=== PATIENT | male | born 1950 | race African-American/Black ===

== ENCOUNTER 2021-10-07 18:41 | Inpatient (IN) | payer OTHER ==
[~2021-10-07] VITALS: Ht 170.2 cm; Wt 71.2 kg
[2021-10-07] MEDS ORDERED: IOHEXOL 350 MG/ML 100 ML VIAL ONE (19:05)
[2021-10-07 19:23] LABS: BASOPHILS % (AUTO) 0.5 % (0.0-2.0); EOSINOPHILS % (AUTO) 2.1 % (1.0-6.0); HEMOGLOBIN 13.5 g/dL (13.5-17.5); LYMPHOCYTES # (AUTO) 2.6 K/uL (1.0-4.8); MEAN CORPUSCULAR HEMOGLOBIN 30.9 pg (26.0-34.0); MEAN CORPUSCULAR HGB CONC 33.7 G/dL (31.0-37.0); MEAN CORPUSCULAR VOLUME 92 fL (80-100); MONOCYTES # (AUTO) 0.8 K/uL (0.1-1.0); MONOCYTES % (AUTO) 8.1 % (2.0-9.0); NEUTROPHILS # (AUTO) 6.2 K/uL (1.8-7.7); NEUTROPHILS % (AUTO) 63.3 % (40.0-70.0); PLATELET COUNT (AUTO) 198 K/uL (150-450); RED BLOOD CELL COUNT(AUTO) 4.35 MIL/uL (4.50-5.90); RED CELL DISTRIBUTION WIDTH 13.2 % (11.5-14.5)
[2021-10-07 19:32] LABS: CALCIUM, TOTAL 9.1 mg/dL (8.8-10.5); CREATININE 2.62 mg/dL (0.60-1.30); POTASSIUM 4.3 mmol/L (3.5-5.1)
[2021-10-07] MEDS ORDERED: AMLO10TA55 PO (19:32)
[2021-10-07] MEDS ORDERED: FURO40TA5 PO (19:32)
[2021-10-07] MEDS ORDERED: CARV25TA32 PO (19:32)
[2021-10-07] MEDS ORDERED: SACU1TAB PO (19:32)
[2021-10-07] MEDS ORDERED: APIX5TAB PO (19:32)
[2021-10-07] MEDS ORDERED: DOCU-378 PO (19:32)
[2021-10-07] MEDS ORDERED: GABA-1181 PO (19:32)
[2021-10-07 19:38] LABS: BILIRUBIN,TOTAL 0.4 mg/dL (0.1-1.0)
[2021-10-07 19:39] LABS: PROTHROMBIN TIME 10.7 SEC (9.4-11.6)
[2021-10-07 19:45] LABS: B-TYPE NATRIURETIC PEPTIDE 577 pg/mL (0-100)
[2021-10-07] MEDS ORDERED: ONDANSETRON HCL 4 MG/2 ML VIAL IVP ONE (20:00)
[2021-10-07] MEDS ORDERED: ASPIRIN 325 MG TABLET PO ONE (20:00)
[2021-10-07] MEDS ORDERED: LABETALOL HCL 5 MG/ML 20 ML VIAL IVP ONE ×2 (20:00→21:15)
[2021-10-07 20:33] LABS: COVID AG,FIA SOURCE NASOPHARYNGEAL
[2021-10-07] MEDS ORDERED: 0.9% SODIUM CHLORIDE 10 ML SYRINGE IVP PRN (23:00)
[2021-10-07] MEDS ORDERED: ONDANSETRON HCL 4 MG/2 ML VIAL IVP PRN ×2 (23:00→23:45)
[2021-10-07] MEDS ORDERED: ACETAMINOPHEN 325 MG TABLET PO PRN ×2 (23:00→23:45)
[2021-10-07 23:36] LABS: APPEARANCE,URINE CLEAR (CLEAR); BILIRUBIN,URINE NEGATIVE (NEGATIVE); GLUCOSE, URINE (UA) 100 mg/dL (NEGATIVE); KETONES,URINE NEGATIVE (NEGATIVE); LEUKOCYTE ESTERASE ,URINE NEGATIVE (NEGATIVE); NITRATE,URINE NEGATIVE (NEGATIVE); OCCULT BLOOD,URINE TRACE (NEGATIVE); PROTEIN,URINE SEE CONFIRM (NEGATIVE)
[2021-10-07 23:38] LABS: AMPHET/METH SCREEN,URINE NEGATIVE (NEGATIVE); BARBITURATE SCREEN, URINE NEGATIVE (NEGATIVE); BENZODIAZEPINES SCREEN,URINE NEGATIVE (NEGATIVE); CANNABINOID SCREEN,URINE NEGATIVE (NEGATIVE); COCAINE SCREEN,URINE NEGATIVE (NEGATIVE); METHADONE SCREEN, URINE POSITIVE (NEGATIVE); OPIATE SCREEN,URINE NEGATIVE (NEGATIVE)
[2021-10-07 23:39] LABS: PHENCYCLIDINE SCREEN,URINE NEGATIVE (NEGATIVE)
[2021-10-07 23:45] LABS: SULFOSALICYLIC ACID,URINE 2+ (Negative)
[2021-10-07] MEDS ORDERED: ZOLPIDEM TARTRATE 5 MG TABLET PO PRN (23:45)
[2021-10-07] MEDS ORDERED: MAGNESIUM HYDROXIDE SUSPENSION 30 ML UDCUP PO PRN (23:45)
[2021-10-07] MEDS ORDERED: BISACODYL 10 MG RECTAL RECTAL SUPPOSITORY PR PRN (23:45)
[2021-10-07] MEDS ORDERED: HYDROCODONE/ACETAMINOPHEN 5-325 MG TABLET PO PRN (23:45)
[2021-10-07] MEDS ORDERED: MORPHINE SULFATE 2 MG/ML SYRINGE IVP PRN (23:45)
[2021-10-07 23:46] LABS: BACTERIA,URINE None Seen /HPF (None Seen); RBC,URINE 0-2 /HPF (0-2); WBC,URINE None Seen /HPF (0-5)
[2021-10-08] VITALS (7 sets, daily range): BP systolic 134–187; BP diastolic 73–86
[2021-10-08] MEDS: HydrALAZINE HCL 20 MG/ML VIAL IVP PRN (00:35)
[2021-10-08 06:36] LABS: GLUCOMETER DEV NAME(LOC) 5N.1C; GLUCOSE,POINT OF CARE 94 MG/DL (70-110)
[2021-10-08] MEDS ORDERED: GABAPENTIN 300 MG CAPSULE PO SCH (09:00)
[2021-10-08] MEDS: PANTOPRAZOLE SODIUM 40 MG DR TABLET PO SCH (09:48)
[2021-10-08] MEDS: APIXABAN 5 MG TABLET PO SCH ×2 (09:49→21:03)
[2021-10-08] MEDS: CARVEDILOL 25 MG TABLET PO SCH ×3 (09:49→21:03)
[2021-10-08] MEDS: DOCUSATE SODIUM 100 MG CAPSULE PO SCH ×2 (09:49→21:03)
[2021-10-08] MEDS: AmLODIPine BESYLATE 10 MG TABLET PO SCH (09:49)
[2021-10-08] MEDS: FUROSEMIDE 40 MG TABLET PO SCH (09:49)
[2021-10-08 10:35] LABS: BASOPHILS % (AUTO) 0.6 % (0.0-2.0); EOSINOPHILS % (AUTO) 2.2 % (1.0-6.0); HEMATOCRIT 39.2 % (41-53); HEMOGLOBIN 13.1 g/dL (13.5-17.5); LYMPHOCYTES # (AUTO) 2.6 K/uL (1.0-4.8); LYMPHOCYTES % (AUTO) 33.5 % (22.0-44.0); MEAN CORPUSCULAR HEMOGLOBIN 30.8 pg (26.0-34.0); MEAN CORPUSCULAR HGB CONC 33.5 G/dL (31.0-37.0); MEAN CORPUSCULAR VOLUME 92 fL (80-100); MONOCYTES # (AUTO) 0.6 K/uL (0.1-1.0); MONOCYTES % (AUTO) 7.6 % (2.0-9.0); NEUTROPHILS # (AUTO) 4.3 K/uL (1.8-7.7); NEUTROPHILS % (AUTO) 56.1 % (40.0-70.0); PLATELET COUNT (AUTO) 168 K/uL (150-450); RED BLOOD CELL COUNT(AUTO) 4.27 MIL/uL (4.50-5.90); RED CELL DISTRIBUTION WIDTH 13.2 % (11.5-14.5)
[2021-10-08 10:48] LABS: ALBUMIN 2.6 g/dL (3.4-5.0); BILIRUBIN,TOTAL 0.5 mg/dL (0.1-1.0); CREATININE 2.64 mg/dL (0.60-1.30); POTASSIUM 3.9 mmol/L (3.5-5.1)
[2021-10-08] MEDS: SACUBITRIL/VALSARTAN 24-26 MG TABLET PO SCH ×2 (11:20→21:04)
[2021-10-08 13:21] LABS: GLUCOMETER DEV NAME(LOC) 5N.1C; GLUCOSE,POINT OF CARE 146 MG/DL (70-110)
[2021-10-08 20:01] LABS: GLUCOMETER DEV NAME(LOC) 5N.1C; GLUCOSE,POINT OF CARE 117 MG/DL (70-110)
[2021-10-08] MEDS: GABAPENTIN 100 MG CAPSULE PO SCH (21:03)
[2021-10-09 00:28] VITALS: BP 176/69
[2021-10-09 04:30] VITALS: BP 138/69
[2021-10-09 05:37] LABS: GLUCOMETER DEV NAME(LOC) 5N.1C; GLUCOSE,POINT OF CARE 124 MG/DL (70-110)
[2021-10-09 06:36] LABS: BASOPHILS % (AUTO) 0.5 % (0.0-2.0); EOSINOPHILS % (AUTO) 3.5 % (1.0-6.0); HEMATOCRIT 35.9 % (41-53); HEMOGLOBIN 12.3 g/dL (13.5-17.5); LYMPHOCYTES # (AUTO) 2.4 K/uL (1.0-4.8); LYMPHOCYTES % (AUTO) 36.8 % (22.0-44.0); MEAN CORPUSCULAR HEMOGLOBIN 31.4 pg (26.0-34.0); MEAN CORPUSCULAR HGB CONC 34.3 G/dL (31.0-37.0); MEAN CORPUSCULAR VOLUME 92 fL (80-100); MONOCYTES # (AUTO) 0.6 K/uL (0.1-1.0); MONOCYTES % (AUTO) 9.8 % (2.0-9.0); NEUTROPHILS # (AUTO) 3.2 K/uL (1.8-7.7); NEUTROPHILS % (AUTO) 49.4 % (40.0-70.0); PLATELET COUNT (AUTO) 168 K/uL (150-450); RED BLOOD CELL COUNT(AUTO) 3.92 MIL/uL (4.50-5.90); RED CELL DISTRIBUTION WIDTH 13.2 % (11.5-14.5)
[2021-10-09 06:42] LABS: CALCIUM, TOTAL 8.8 mg/dL (8.8-10.5); CREATININE 3.38 mg/dL (0.60-1.30); POTASSIUM 3.7 mmol/L (3.5-5.1)
[2021-10-09 06:56] LABS: GLUCOMETER DEV NAME(LOC) 5N.1C; GLUCOSE,POINT OF CARE 87 MG/DL (70-110)
[2021-10-09 08:36] VITALS: BP 143/77
[2021-10-09] MEDS: SACUBITRIL/VALSARTAN 24-26 MG TABLET PO SCH ×2 (09:17→20:51)
[2021-10-09] MEDS: FUROSEMIDE 40 MG TABLET PO SCH (09:17)
[2021-10-09] MEDS: PANTOPRAZOLE SODIUM 40 MG DR TABLET PO SCH (09:18)
[2021-10-09] MEDS: DOCUSATE SODIUM 100 MG CAPSULE PO SCH ×2 (09:18→20:52)
[2021-10-09] MEDS: GABAPENTIN 100 MG CAPSULE PO SCH ×2 (09:18→20:52)
[2021-10-09] MEDS: CARVEDILOL 25 MG TABLET PO SCH ×2 (09:18→20:51)
[2021-10-09] MEDS: AmLODIPine BESYLATE 10 MG TABLET PO SCH (09:18)
[2021-10-09] MEDS: APIXABAN 5 MG TABLET PO SCH ×2 (09:19→20:51)
[2021-10-09 12:43] VITALS: BP 168/84
[2021-10-09 15:47] VITALS: BP 152/69
[2021-10-09] MEDS: DEXTROSE 5%-WATER 1,000 ML IV SCH (16:10)
[2021-10-09 20:00] VITALS: BP 161/85
[2021-10-09 20:56] LABS: GLUCOMETER DEV NAME(LOC) 5S.1B; GLUCOSE,POINT OF CARE 121 MG/DL (70-110)
[2021-10-09 20:56] LABS: GLUCOMETER DEV NAME(LOC) 5S.1B; GLUCOSE,POINT OF CARE 73 MG/DL (70-110)
[2021-10-10] VITALS: BP 127/47
[2021-10-10 02:11] LABS: GLUCOMETER DEV NAME(LOC) 5N.1C; GLUCOSE,POINT OF CARE 128 MG/DL (70-110)
[2021-10-10 04:00] VITALS: BP 126/43
[2021-10-10] MEDS: DEXTROSE 5%-WATER 1,000 ML IV SCH ×2 (05:21→20:50)
[2021-10-10 06:41] LABS: GLUCOMETER DEV NAME(LOC) 5N.1C; GLUCOSE,POINT OF CARE 155 MG/DL (70-110)
[2021-10-10 07:52] LABS: BASOPHILS % (AUTO) 0.3 % (0.0-2.0); EOSINOPHILS % (AUTO) 2.6 % (1.0-6.0); HEMATOCRIT 41.7 % (41-53); HEMOGLOBIN 14.1 g/dL (13.5-17.5); LYMPHOCYTES # (AUTO) 2.3 K/uL (1.0-4.8); LYMPHOCYTES % (AUTO) 32.1 % (22.0-44.0); MEAN CORPUSCULAR HEMOGLOBIN 31.1 pg (26.0-34.0); MEAN CORPUSCULAR HGB CONC 33.9 G/dL (31.0-37.0); MEAN CORPUSCULAR VOLUME 92 fL (80-100); MONOCYTES # (AUTO) 0.6 K/uL (0.1-1.0); MONOCYTES % (AUTO) 8.3 % (2.0-9.0); NEUTROPHILS # (AUTO) 4.1 K/uL (1.8-7.7); NEUTROPHILS % (AUTO) 56.7 % (40.0-70.0); PLATELET COUNT (AUTO) 178 K/uL (150-450); RED BLOOD CELL COUNT(AUTO) 4.54 MIL/uL (4.50-5.90); RED CELL DISTRIBUTION WIDTH 13.1 % (11.5-14.5)
[2021-10-10 08:00] VITALS: BP 171/84
[2021-10-10 08:03] LABS: CALCIUM, TOTAL 8.8 mg/dL (8.8-10.5); CREATININE 3.66 mg/dL (0.60-1.30); POTASSIUM 3.5 mmol/L (3.5-5.1)
[2021-10-10] MEDS: AmLODIPine BESYLATE 10 MG TABLET PO SCH (09:50)
[2021-10-10] MEDS: FUROSEMIDE 40 MG TABLET PO SCH (09:50)
[2021-10-10] MEDS: PANTOPRAZOLE SODIUM 40 MG DR TABLET PO SCH (09:50)
[2021-10-10] MEDS: GABAPENTIN 100 MG CAPSULE PO SCH ×2 (09:50→20:51)
[2021-10-10] MEDS: SACUBITRIL/VALSARTAN 24-26 MG TABLET PO SCH (09:50)
[2021-10-10] MEDS: CARVEDILOL 25 MG TABLET PO SCH ×2 (09:50→20:51)
[2021-10-10] MEDS: APIXABAN 5 MG TABLET PO SCH ×2 (09:51→20:51)
[2021-10-10] MEDS: DOCUSATE SODIUM 100 MG CAPSULE PO SCH ×2 (09:51→20:51)
[2021-10-10 12:58] VITALS: BP 138/69
[2021-10-10 16:00] VITALS: BP 148/80
[2021-10-10 17:22] LABS: INR 1.1 (0.9-1.1); PROTHROMBIN TIME 11.5 SEC (9.4-11.6)
[2021-10-10 18:21] LABS: GLUCOMETER DEV NAME(LOC) 5S.1B; GLUCOSE,POINT OF CARE 133 MG/DL (70-110)
[2021-10-10 19:43] VITALS: BP 123/73
[2021-10-10 20:06] LABS: GLUCOMETER DEV NAME(LOC) 5N.1C; GLUCOSE,POINT OF CARE 173 MG/DL (70-110)
[2021-10-10 21:16] LABS: GLUCOMETER DEV NAME(LOC) 5N.1C; GLUCOSE,POINT OF CARE 148 MG/DL (70-110)
[2021-10-11 02:06] VITALS: BP 121/69
[2021-10-11 04:31] VITALS: BP 127/86
[2021-10-11 08:35] VITALS: BP 161/85
[2021-10-11 08:41] LABS: CALCIUM, TOTAL 9.2 mg/dL (8.8-10.5); CREATININE 3.82 mg/dL (0.60-1.30); POTASSIUM 3.5 mmol/L (3.5-5.1)
[2021-10-11] MEDS: GABAPENTIN 100 MG CAPSULE PO SCH ×2 (09:00→21:03)
[2021-10-11] MEDS: AmLODIPine BESYLATE 10 MG TABLET PO SCH (09:00)
[2021-10-11] MEDS: APIXABAN 5 MG TABLET PO SCH ×2 (09:00→21:00)
[2021-10-11] MEDS: DOCUSATE SODIUM 100 MG CAPSULE PO SCH ×2 (09:00→21:03)
[2021-10-11] MEDS: CARVEDILOL 25 MG TABLET PO SCH ×2 (09:00→21:03)
[2021-10-11] MEDS: PANTOPRAZOLE SODIUM 40 MG DR TABLET PO SCH (09:00)
[2021-10-11] MEDS: DEXTROSE 5%-WATER 1,000 ML IV SCH (10:47)
[2021-10-11 11:31] LABS: GLUCOMETER DEV NAME(LOC) 5N.1C; GLUCOSE,POINT OF CARE 142 MG/DL (70-110)
[2021-10-11 12:23] VITALS: BP 132/75
[2021-10-11 16:36] LABS: GLUCOMETER DEV NAME(LOC) 5N.1C; GLUCOSE,POINT OF CARE 140 MG/DL (70-110)
[2021-10-11 18:20] VITALS: BP 136/87
[2021-10-11 20:15] LABS: GLUCOMETER DEV NAME(LOC) 5N.1C; GLUCOSE,POINT OF CARE 124 MG/DL (70-110)
[2021-10-11 20:20] VITALS: BP 158/97
[2021-10-11 22:37] LABS: GLUCOMETER DEV NAME(LOC) 5S.2B; GLUCOSE,POINT OF CARE 150 MG/DL (70-110)
[2021-10-12 00:23] VITALS: BP 147/79
[2021-10-12] MEDS: DEXTROSE 5%-WATER 1,000 ML IV SCH (00:32)
[2021-10-12 01:45] LABS: APPEARANCE,URINE CLEAR (CLEAR); BILIRUBIN,URINE NEGATIVE (NEGATIVE); GLUCOSE, URINE (UA) NEGATIVE (NEGATIVE); KETONES,URINE NEGATIVE (NEGATIVE); LEUKOCYTE ESTERASE ,URINE NEGATIVE (NEGATIVE); NITRATE,URINE NEGATIVE (NEGATIVE); OCCULT BLOOD,URINE TRACE (NEGATIVE); PH,URINE 6.5 (5.0-8.0); PROTEIN,URINE SEE CONFIRM (NEGATIVE)
[2021-10-12 01:48] LABS: CREATININE,URINE RANDOM 32.8 mg/dL (30.0-125.0); PROTEIN,URINE RANDOM 177 mg/dL (0-11.9); SODIUM,URINE RANDOM 17 mmol/l (20-110); UREA NITROGEN,URINE RANDOM 152 mg/dL (350-1000)
[2021-10-12 02:01] LABS: BACTERIA,URINE None Seen /HPF (None Seen); RBC,URINE 0-2 /HPF (0-2); SULFOSALICYLIC ACID,URINE 1+ (Negative); WBC,URINE 0-2 /HPF (0-5)
[2021-10-12 04:51] VITALS: BP 129/66
[2021-10-12 07:50] LABS: CALCIUM, TOTAL 8.5 mg/dL (8.8-10.5); MAGNESIUM 1.7 mg/dL (1.80-2.40); PHOSPHORUS 5.3 mg/dL (2.5-4.9); POTASSIUM 3.5 mmol/L (3.5-5.1)
[2021-10-12 08:01] LABS: GLUCOMETER DEV NAME(LOC) 5N.1C; GLUCOSE,POINT OF CARE 142 MG/DL (70-110)
[2021-10-12] MEDS: APIXABAN 5 MG TABLET PO SCH (08:18)
[2021-10-12 08:29] VITALS: BP 138/73
[2021-10-12] MEDS: PANTOPRAZOLE SODIUM 40 MG DR TABLET PO SCH (09:00)
[2021-10-12] MEDS: AmLODIPine BESYLATE 10 MG TABLET PO SCH (09:17)
[2021-10-12] MEDS: CARVEDILOL 25 MG TABLET PO SCH ×2 (09:17→20:36)
[2021-10-12] MEDS: DOCUSATE SODIUM 100 MG CAPSULE PO SCH ×2 (09:17→20:36)
[2021-10-12] MEDS: GABAPENTIN 100 MG CAPSULE PO SCH ×2 (09:17→20:35)
[2021-10-12 12:00] VITALS: BP 139/67
[2021-10-12] MEDS: SODIUM CHLORIDE 0.9% 1,000 ML IV SCH (13:07)
[2021-10-12] MEDS ORDERED: HEPARIN SODIUM,PORCINE 5,000 UNITS/ML VIAL IVP PRN ×2 (15:15)
[2021-10-12 15:43] LABS: BASOPHILS % (AUTO) 0.5 % (0.0-2.0); EOSINOPHILS % (AUTO) 2.1 % (1.0-6.0); HEMATOCRIT 37.1 % (41-53); HEMOGLOBIN 12.7 g/dL (13.5-17.5); LYMPHOCYTES # (AUTO) 1.6 K/uL (1.0-4.8); LYMPHOCYTES % (AUTO) 20.6 % (22.0-44.0); MEAN CORPUSCULAR HEMOGLOBIN 30.8 pg (26.0-34.0); MEAN CORPUSCULAR HGB CONC 34.3 G/dL (31.0-37.0); MEAN CORPUSCULAR VOLUME 90 fL (80-100); MONOCYTES # (AUTO) 0.9 K/uL (0.1-1.0); NEUTROPHILS # (AUTO) 5.2 K/uL (1.8-7.7); NEUTROPHILS % (AUTO) 65.8 % (40.0-70.0); PLATELET COUNT (AUTO) 173 K/uL (150-450); RED BLOOD CELL COUNT(AUTO) 4.14 MIL/uL (4.50-5.90); RED CELL DISTRIBUTION WIDTH 12.8 % (11.5-14.5)
[2021-10-12 15:56] LABS: INR 1.1 (0.9-1.1); PROTHROMBIN TIME 11.2 SEC (9.4-11.6)
[2021-10-12 21:39] VITALS: BP 144/77
[2021-10-12 23:35] LABS: GLUCOMETER DEV NAME(LOC) 5N.1C; GLUCOSE,POINT OF CARE 172 MG/DL (70-110)
[2021-10-12 23:36] LABS: GLUCOMETER DEV NAME(LOC) 5N.1C; GLUCOSE,POINT OF CARE 163 MG/DL (70-110)
[2021-10-12 23:36] LABS: GLUCOMETER DEV NAME(LOC) 5S.2B; GLUCOSE,POINT OF CARE 171 MG/DL (70-110)
[2021-10-13] MEDS: HEPARIN SODIUM 25000 UNITS/D5W 250 ML IV PRN ×2 (00:05→23:41)
[2021-10-13 01:11] VITALS: BP 141/76
[2021-10-13] MEDS: SODIUM CHLORIDE 0.9% 1,000 ML IV SCH ×2 (02:05→18:08)
[2021-10-13 04:26] VITALS: BP 155/77
[2021-10-13 06:50] LABS: CALCIUM, TOTAL 8.5 mg/dL (8.8-10.5); CREATININE 3.71 mg/dL (0.60-1.30); MAGNESIUM 1.8 mg/dL (1.80-2.40); PHOSPHORUS 4.2 mg/dL (2.5-4.9); POTASSIUM 3.4 mmol/L (3.5-5.1)
[2021-10-13 06:52] LABS: BASOPHILS % (AUTO) 0.3 % (0.0-2.0); EOSINOPHILS % (AUTO) 1.2 % (1.0-6.0); HEMATOCRIT 36.6 % (41-53); HEMOGLOBIN 12.7 g/dL (13.5-17.5); LYMPHOCYTES # (AUTO) 1.4 K/uL (1.0-4.8); LYMPHOCYTES % (AUTO) 14.2 % (22.0-44.0); MEAN CORPUSCULAR HGB CONC 34.7 G/dL (31.0-37.0); MEAN CORPUSCULAR VOLUME 89 fL (80-100); MONOCYTES # (AUTO) 0.9 K/uL (0.1-1.0); MONOCYTES % (AUTO) 9.2 % (2.0-9.0); NEUTROPHILS # (AUTO) 7.6 K/uL (1.8-7.7); NEUTROPHILS % (AUTO) 75.1 % (40.0-70.0); PLATELET COUNT (AUTO) 149 K/uL (150-450); RED CELL DISTRIBUTION WIDTH 12.8 % (11.5-14.5)
[2021-10-13] MEDS ORDERED: CeFAZolin 1 GM/DEXTROSE 50 ML IV ONE (07:00)
[2021-10-13 08:20] VITALS: BP 161/115
[2021-10-13] MEDS: PANTOPRAZOLE SODIUM 40 MG DR TABLET PO SCH (09:02)
[2021-10-13] MEDS: CARVEDILOL 25 MG TABLET PO SCH ×2 (09:02→21:10)
[2021-10-13] MEDS: AmLODIPine BESYLATE 10 MG TABLET PO SCH (09:02)
[2021-10-13] MEDS: DOCUSATE SODIUM 100 MG CAPSULE PO SCH (09:03)
[2021-10-13] MEDS: GABAPENTIN 100 MG CAPSULE PO SCH ×2 (09:03→21:09)
[2021-10-13] MEDS ORDERED: SODIUM CHLORIDE 0.9% 0 ML ONE (09:10)
[2021-10-13] MEDS: TAMSULOSIN HCL 0.4 MG CAPSULE PO SCH (12:17)
[2021-10-13 12:38] VITALS: BP 89/74
[2021-10-13 12:56] LABS: GLUCOMETER DEV NAME(LOC) 5N.1C; GLUCOSE,POINT OF CARE 182 MG/DL (70-110)
[2021-10-13 12:56] LABS: GLUCOMETER DEV NAME(LOC) 5N.1C; GLUCOSE,POINT OF CARE 224 MG/DL (70-110)
[2021-10-13 16:00] VITALS: BP 158/69
[2021-10-13 19:51] LABS: GLUCOMETER DEV NAME(LOC) 5S.2B; GLUCOSE,POINT OF CARE 219 MG/DL (70-110)
[2021-10-13 20:00] VITALS: BP 166/88
[2021-10-13] MEDS ORDERED: INSULIN LISPRO 100 UNITS/ML SQ PRN (21:30)
[2021-10-13] MEDS ORDERED: DEXTROSE 50%-WATER 25 GM/50 ML SYRINGE IVP PRN (21:30)
[2021-10-13] MEDS: HydrALAZINE HCL 20 MG/ML VIAL IVP PRN (22:06)
[2021-10-14] VITALS: BP 145/68
[2021-10-14 04:00] VITALS: BP 145/68
[2021-10-14 05:16] LABS: GLUCOMETER DEV NAME(LOC) 5N.1C; GLUCOSE,POINT OF CARE 225 MG/DL (70-110)
[2021-10-14] MEDS ORDERED: DEXTROSE 50%-WATER 25 GM/50 ML SYRINGE IVP PRN (06:45)
[2021-10-14 07:26] LABS: CALCIUM, TOTAL 8.5 mg/dL (8.8-10.5); CREATININE 3.37 mg/dL (0.60-1.30); MAGNESIUM 1.9 mg/dL (1.80-2.40); PHOSPHORUS 3.4 mg/dL (2.5-4.9); POTASSIUM 3.4 mmol/L (3.5-5.1)
[2021-10-14] MEDS: SODIUM CHLORIDE 0.9% 1,000 ML IV SCH (08:46)
[2021-10-14] MEDS: DOCUSATE SODIUM 100 MG/10 ML LIQUID UDCUP NG SCH ×2 (08:55→21:04)
[2021-10-14] MEDS: TAMSULOSIN HCL 0.4 MG CAPSULE PO SCH (08:56)
[2021-10-14] MEDS: AmLODIPine BESYLATE 10 MG TABLET PO SCH (08:56)
[2021-10-14] MEDS: PANTOPRAZOLE SODIUM 40 MG DR TABLET PO SCH (08:57)
[2021-10-14] MEDS: CARVEDILOL 25 MG TABLET PO SCH ×2 (08:57→21:04)
[2021-10-14] MEDS: GABAPENTIN 100 MG CAPSULE PO SCH ×2 (08:58→21:04)
[2021-10-14 09:35] VITALS: BP 159/83
[2021-10-14] MEDS: INSULIN LISPRO 100 UNITS/ML SQ PRN ×2 (12:44→17:59)
[2021-10-14 17:13] VITALS: BP 155/89
[2021-10-14 17:16] LABS: GLUCOMETER DEV NAME(LOC) 5N.1C; GLUCOSE,POINT OF CARE 134 MG/DL (70-110)
[2021-10-14 19:39] VITALS: BP 121/63
[2021-10-14 20:36] LABS: GLUCOMETER DEV NAME(LOC) 5S.2B; GLUCOSE,POINT OF CARE 209 MG/DL (70-110)
[2021-10-14 20:36] LABS: GLUCOMETER DEV NAME(LOC) 5S.2B; GLUCOSE,POINT OF CARE 226 MG/DL (70-110)
[2021-10-15] MEDS: SODIUM CHLORIDE 0.9% 1,000 ML IV SCH (00:05)
[2021-10-15 00:54] VITALS: BP 131/65
[2021-10-15] MEDS: HEPARIN SODIUM 25000 UNITS/D5W 250 ML IV PRN (03:08)
[2021-10-15 05:14] VITALS: BP 127/64
[2021-10-15] MEDS: INSULIN LISPRO 100 UNITS/ML SQ PRN (05:32)
[2021-10-15 07:07] LABS: IGM (IMMUNOFIXATION) 266 mg/dL (20-172)
[2021-10-15 07:28] LABS: CALCIUM, TOTAL 8.5 mg/dL (8.8-10.5); CREATININE 3.19 mg/dL (0.60-1.30); PHOSPHORUS 2.9 mg/dL (2.5-4.9); POTASSIUM 3.7 mmol/L (3.5-5.1)
[2021-10-15 07:30] VITALS: BP 140/92
[2021-10-15] MEDS: TAMSULOSIN HCL 0.4 MG CAPSULE PO SCH (09:00)
[2021-10-15] MEDS: CARVEDILOL 25 MG TABLET PO SCH ×2 (09:00→21:00)
[2021-10-15] MEDS: AmLODIPine BESYLATE 10 MG TABLET PO SCH (09:00)
[2021-10-15] MEDS: PANTOPRAZOLE SODIUM 40 MG DR TABLET PO SCH (09:00)
[2021-10-15] MEDS: GABAPENTIN 100 MG CAPSULE PO SCH ×2 (09:00→21:00)
[2021-10-15] MEDS: DOCUSATE SODIUM 100 MG/10 ML LIQUID UDCUP NG SCH ×2 (09:00→21:00)
[2021-10-15] MEDS: SODIUM CHLORIDE 0.45% 1,000 ML IV SCH (09:07)
[2021-10-15 11:39] VITALS: BP 134/63
[2021-10-15 11:46] LABS: GLUCOMETER DEV NAME(LOC) 5S.2B; GLUCOSE,POINT OF CARE 201 MG/DL (70-110)
[2021-10-15 15:36] VITALS: BP 155/77
[2021-10-15 17:21] LABS: GLUCOMETER DEV NAME(LOC) 5S.2B; GLUCOSE,POINT OF CARE 169 MG/DL (70-110)
[2021-10-15 17:56] LABS: GLUCOMETER DEV NAME(LOC) 5S.1B; GLUCOSE,POINT OF CARE 212 MG/DL (70-110)
[2021-10-15 17:56] LABS: GLUCOMETER DEV NAME(LOC) 5S.1B; GLUCOSE,POINT OF CARE 186 MG/DL (70-110)
[2021-10-15 20:45] VITALS: BP 144/85
[2021-10-16] VITALS (7 sets, daily range): BP systolic 135–164; BP diastolic 67–91
[2021-10-16] MEDS: SODIUM CHLORIDE 0.45% 1,000 ML IV SCH ×2 (04:53→23:36)
[2021-10-16 06:06] LABS: ALBUMIN URINE (ELP) 45.3 %
[2021-10-16 06:20] LABS: CALCIUM, TOTAL 8.5 mg/dL (8.8-10.5); CREATININE 2.73 mg/dL (0.60-1.30); PHOSPHORUS 3.2 mg/dL (2.5-4.9); POTASSIUM 3.2 mmol/L (3.5-5.1)
[2021-10-16 06:42] LABS: BASOPHILS % (AUTO) 0.3 % (0.0-2.0); EOSINOPHILS % (AUTO) 2.2 % (1.0-6.0); HEMATOCRIT 31.4 % (41-53); HEMOGLOBIN 10.6 g/dL (13.5-17.5); LYMPHOCYTES # (AUTO) 2.2 K/uL (1.0-4.8); LYMPHOCYTES % (AUTO) 23.8 % (22.0-44.0); MEAN CORPUSCULAR HEMOGLOBIN 30.6 pg (26.0-34.0); MEAN CORPUSCULAR HGB CONC 33.7 G/dL (31.0-37.0); MEAN CORPUSCULAR VOLUME 91 fL (80-100); MONOCYTES % (AUTO) 10.4 % (2.0-9.0); NEUTROPHILS # (AUTO) 5.8 K/uL (1.8-7.7); NEUTROPHILS % (AUTO) 63.3 % (40.0-70.0); PLATELET COUNT (AUTO) 195 K/uL (150-450); RED BLOOD CELL COUNT(AUTO) 3.46 MIL/uL (4.50-5.90); RED CELL DISTRIBUTION WIDTH 12.8 % (11.5-14.5)
[2021-10-16] MEDS: HEPARIN SODIUM 25000 UNITS/D5W 250 ML IV PRN (08:10)
[2021-10-16] MEDS: HydrALAZINE HCL 20 MG/ML VIAL IVP PRN (08:17)
[2021-10-16] MEDS: POTASSIUM CHL 10 MEQ/WATER 50 ML IV SCH ×2 (08:17→09:30)
[2021-10-16 08:21] LABS: GLUCOMETER DEV NAME(LOC) 5S.2B; GLUCOSE,POINT OF CARE 162 MG/DL (70-110)
[2021-10-16 08:21] LABS: GLUCOMETER DEV NAME(LOC) 5S.2B; GLUCOSE,POINT OF CARE 159 MG/DL (70-110)
[2021-10-16] MEDS: AmLODIPine BESYLATE 10 MG TABLET PO SCH (09:00)
[2021-10-16] MEDS: CARVEDILOL 25 MG TABLET PO SCH ×2 (09:00→21:34)
[2021-10-16] MEDS: TAMSULOSIN HCL 0.4 MG CAPSULE PO SCH (09:00)
[2021-10-16] MEDS: PANTOPRAZOLE SODIUM 40 MG DR TABLET PO SCH (09:00)
[2021-10-16] MEDS: GABAPENTIN 100 MG CAPSULE PO SCH ×2 (09:00→21:34)
[2021-10-16] MEDS: DOCUSATE SODIUM 100 MG/10 ML LIQUID UDCUP NG SCH ×2 (09:00→21:34)
[2021-10-16] MEDS ORDERED: CeFAZolin 1 GM/DEXTROSE 50 ML IV ONE (11:00)
[2021-10-16 12:16] LABS: GLUCOMETER DEV NAME(LOC) 5S.1B; GLUCOSE,POINT OF CARE 182 MG/DL (70-110)
[2021-10-16 17:01] LABS: GLUCOMETER DEV NAME(LOC) 5S.2B; GLUCOSE,POINT OF CARE 164 MG/DL (70-110)
[2021-10-17] MEDS: INSULIN LISPRO 100 UNITS/ML SQ PRN ×4 (01:21→20:37)
[2021-10-17 01:31] LABS: GLUCOMETER DEV NAME(LOC) 5S.1B; GLUCOSE,POINT OF CARE 144 MG/DL (70-110)
[2021-10-17 04:06] VITALS: BP 127/64
[2021-10-17] MEDS ORDERED: PROPOFOL 1% 20 ML VIAL IVP ONE (05:39)
[2021-10-17 05:55] LABS: CALCIUM, TOTAL 8.5 mg/dL (8.8-10.5); CREATININE 2.61 mg/dL (0.60-1.30); MAGNESIUM 1.9 mg/dL (1.80-2.40); PHOSPHORUS 3.4 mg/dL (2.5-4.9); POTASSIUM 3.3 mmol/L (3.5-5.1)
[2021-10-17 07:40] VITALS: BP 131/79
[2021-10-17 08:16] LABS: GLUCOMETER DEV NAME(LOC) 5S.2B; GLUCOSE,POINT OF CARE 143 MG/DL (70-110)
[2021-10-17] MEDS: CARVEDILOL 25 MG TABLET PO SCH ×2 (08:47→20:35)
[2021-10-17] MEDS: GABAPENTIN 100 MG CAPSULE PO SCH ×2 (08:47→20:35)
[2021-10-17] MEDS: AmLODIPine BESYLATE 10 MG TABLET PO SCH (08:47)
[2021-10-17] MEDS: PANTOPRAZOLE SODIUM 40 MG DR TABLET PO SCH (08:47)
[2021-10-17] MEDS: TAMSULOSIN HCL 0.4 MG CAPSULE PO SCH (08:47)
[2021-10-17] MEDS: DOCUSATE SODIUM 100 MG/10 ML LIQUID UDCUP NG SCH ×2 (08:47→20:35)
[2021-10-17] MEDS: POTASSIUM CHL 10 MEQ/WATER 50 ML IV SCH ×3 (10:00→12:06)
[2021-10-17 11:42] VITALS: BP 171/80
[2021-10-17 12:30] VITALS: BP 150/76
[2021-10-17 12:41] LABS: GLUCOMETER DEV NAME(LOC) 5S.2B; GLUCOSE,POINT OF CARE 216 MG/DL (70-110)
[2021-10-17 16:04] VITALS: BP 168/86
[2021-10-17] MEDS ORDERED: DOCU-270 PO (16:30)
[2021-10-17] MEDS ORDERED: PANT-31 PO (16:31)
[2021-10-17] MEDS ORDERED: GABA-1216 PO (16:31)
[2021-10-17] MEDS ORDERED: TAMS-13 PO (16:32)
[2021-10-17] MEDS ORDERED: ACET-2247 PO (16:32)
[2021-10-17] MEDS ORDERED: BISA10SU11 PR (16:33)
[2021-10-17] MEDS ORDERED: D5050I IV (16:34)
[2021-10-17] MEDS: HydrALAZINE HCL 20 MG/ML VIAL IVP PRN (18:39)
[2021-10-17 19:53] VITALS: BP 155/85
[2021-10-18 00:05] VITALS: BP 128/65
[2021-10-18 02:31] LABS: GLUCOMETER DEV NAME(LOC) 5S.2B; GLUCOSE,POINT OF CARE 194 MG/DL (70-110)
[2021-10-18 04:13] VITALS: BP 144/76
[2021-10-18] MEDS ORDERED: SODIUM CHLORIDE 0.9% 1,000 ML ONE (06:01)
[2021-10-18] MEDS: INSULIN LISPRO 100 UNITS/ML SQ PRN (06:16)
[2021-10-18] MEDS ORDERED: HydrALAZINE HCL 25 MG TABLET PO SCH (09:00)
[2021-10-18 09:16] LABS: GLUCOMETER DEV NAME(LOC) 5S.1B; GLUCOSE,POINT OF CARE 205 MG/DL (70-110)
== END 2021-10-18 07:32 | DRG 64 ==
LOC: EMS 18:49 → 5N 22:00
PROVIDERS: ADMIT Internal Medicine; ATTEND Internal Medicine
PROC: 0DH63UZ Insertion of Feeding Device into Stomach, Percutaneous Approach (ICD-10-PCS; principal; 2021-10-16 15:00)
DX: I63.9 Cerebral infarction, unspecified (principal); E43 Unspecified severe protein-calorie malnutrition; I13.0 Hypertensive heart and chronic kidney disease with heart failure and stage 1 through stage 4 chronic kidney disease, or unspecified chronic kidney disease; I48.20 Chronic atrial fibrillation, unspecified; N17.9 Acute kidney failure, unspecified; R29.810 Facial weakness; E11.22 Type 2 diabetes mellitus with diabetic chronic kidney disease; I50.9 Heart failure, unspecified; N18.30 Chronic kidney disease, stage 3 unspecified; E87.6 Hypokalemia; R13.10 Dysphagia, unspecified; Z20.822 Contact with and (suspected) exposure to COVID-19; N27.1 Small kidney, bilateral; Z87.891 Personal history of nicotine dependence; Z79.01 Long term (current) use of anticoagulants; Z95.0 Presence of cardiac pacemaker; Z79.899 Other long term (current) drug therapy; Z86.73 Personal history of transient ischemic attack (TIA), and cerebral infarction without residual deficits; Z93.1 Gastrostomy status
CPT/HCPCS: 70496; 70498; 71045; 74018; 74230; 76770; 80048; 80053; 81001; 81002; 82271; 82570; 82784; 82962; 83690; 83735; 83880; 84100; 84132; 84156; 84166; 84300; 84484; 84540; 85025; 85610; 85730; 86160; 86334; 86850; 86870; 86880; 86900; 86901; 86905; 86906; 86971; 86999; 92526; 92610; 92611; 93005; 93306; 93880; 97110; 97112; 97162; 97166; 97167; 97530; 97535; 99291; G0480; J0360; J0690; J1644; J2405; J2704; J3480; J3490; J7030; J7060; Q9967; 36415-L1; 36415-TC; 70450; 70450-TC